=== PATIENT | female | born 1970 | race Caucasian/White ===

== ENCOUNTER 2017-03-14 22:15 | Emergency (ER) | payer OTHER ==
[2017-03-14 22:16] VITALS: BMI 38.2
[2017-03-14 22:37] VITALS: RESP 18; TEMP 98.8; O2SAT 99
--- NOTE | 2017-03-14 22:57 | ED PDOC ---
Arrival/HPI - General Historian: Patient - General Chief Complaint: Lower Extremity Problem/Injury Time Seen by Provider: 03/14/17 22:53 - History of Present Illness Narrative History of Present Illness (Text): 03/14/17 22:53 46 y/o female, pmh including gallstone, nkda, c/o rt. posterior knee pain started today. aching pain, associated with swelling, no fever or chills, no headache or night sweat, no dizziness, no fall or trauma, admits rt. calf pain, no other medical or psychological complaints. 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) - Genitourinary/Gynecological Hx Genitourinary Disorders: No Other/Comment: C SECTION X 3 - Psychiatric Hx Emotional Abuse: No Hx Physical Abuse: No Hx Substance Use: No - Surgical History Hx Section: Yes (x 3) - Anesthesia Hx Anesthesia Reactions: No Hx Malignant Hyperthermia: No - Suicidal Assessment Feels Threatened In Home Enviroment: No Family/Social History - Physician Review Nursing Documentation Reviewed: Yes Family/Social History: Unknown Family HX Smoking Status: Never Smoked Hx Alcohol Use: No Hx Substance Use: No Allergies/Home Meds Allergies/Adverse Reactions: Allergies No Known Allergies Allergy (Verified 01/01/16 19:43) Review of Systems - Review of Systems Constitutional: absent: Fatigue, Fevers Eyes: absent: Vision Changes ENT: absent: Hearing Changes Respiratory: absent: SOB, Cough Cardiovascular: absent: Chest Pain Gastrointestinal: absent: Abdominal Pain, Nausea, Vomiting Musculoskeletal: Arthralgias, Myalgias. absent: Back Pain, Neck Pain, Joint Swelling Skin: absent: Rash, Pruritis Neurological: absent: Headache, Dizziness Physical Exam Vital Signs Reviewed: Yes Temperature: Afebrile Blood Pressure: Hypertensive Pulse: Regular Respiratory Rate: Normal Appearance: Positive for: Well-Appearing, Non-Toxic, Comfortable Pain Distress: Moderate Mental Status: Positive for: Alert and Oriented X 3 - Systems Exam Head: Present: Atraumatic, Normocephalic Pupils: Present: PERRL Extroacular Muscles: Present: EOMI Conjunctiva: Present: Normal Mouth: Present: Moist Mucous Membranes Neck: Present: Normal Range of Motion Respiratory/Chest: Present: Clear to Auscultation, Good Air Exchange. No: Respiratory Distress, Accessory Muscle Use Cardiovascular: Present: Regular Rate and Rhythm, Normal S1, S2. No: Murmurs Abdomen: Present: Normal Bowel Sounds. No: Tenderness, Distention, Peritoneal Signs Back: Present: Normal Inspection Upper Extremity: Present: Normal Inspection. No: Cyanosis, Edema Lower Extremity: Present: Normal Inspection, Other (Rt. knee: +ttp on the rt. calf noted, no cellulitis or streaking, no joint laxity, negative salima and oneal signs, FROM without limitation, sensation intact, motor 5/5, +DPPT pulses, capillary refill< 2 seconds, neurovascular intact. ). No: Edema Neurological: Present: GCS=15, Speech Normal, Motor Func Grossly Intact, Gait Normal, Memory Normal Skin: Present: Warm, Dry, Normal Color. No: Rashes Psychiatric: Present: Alert, Oriented x 3, Normal Insight, Normal Concentration Medical Decision Making - RAD Interpretation Consultant In Ergonomics And Safety: Radiologist ED Course and Treatment: 03/14/17 23:00 -toradol -RLE venuous doppler -observe and reassess 03/15/17 00:16 -RLE venuous doppler: as per preliminary report, no acute DVT -Pain improved, will discharge home. -Discharge home with cane, naproxen, ice compression, follow up with your own pmd within2 days, return to the ER for any new or worsening signs or symptoms. ([place]) - RAD Interpretation Radiology Orders: 03/14/17 22:55 DUPLEX LOWER EXTRM VEIN RIGHT [US] Stat RLE Venuous Doppler: as per preliminary report, no acute DVT ([place]) - Medication Orders Current Medication Orders: Discontinued Medications Ketorolac Tromethamine (Toradol) 60 mg IM STAT STA Stop: 03/14/17 22:56 Last Admin: 03/14/17 23:28 Dose: 60 mg - PA / [employer] / Resident Statement MD/DO has reviewed & agrees with the documentation as recorded. Disposition/Present on Arrival - Present on Arrival Any Indicators Present on Arrival: No History of DVT/PE: No History of Uncontrolled Diabetes: No Urinary Catheter: No History of Decub. Ulcer: No History Surgical Site Infection Following: None - Disposition Have Diagnosis and Disposition been Completed?: Yes Disposition Time: 00:17 Patient Plan: Discharge - Disposition Diagnosis: Calf pain Disposition: HOME/ ROUTINE Condition: GOOD Additional Instructions: -Discharge home with cane, naproxen, ice compression, follow up with your own pmd within2 days, return to the ER for any new or worsening signs or symptoms. Prescriptions: Naproxen 500 mg PO BID PRN #[id number] tab PRN Reason: Other Referrals: Inga Bell APN-C [Primary Care Provider] - Follow up with primary Gregory Baugh MD [Staff Provider] - Follow up with primary Forms: [employer] (Togolese), WORK NOTE
[2017-03-15 00:49] VITALS: BP 145/81; PULSE 70
--- NOTE | 2017-03-15 15:38 | US ---
PROCEDURE: Right lower extremity venous US HISTORY: Leg pain and swelling. Evaluate for DVT. PHYSICIAN(S): Lance Bell M.D. TECHNIQUE: Duplex sonography and color-flow Doppler with graded compression were used to evaluate the deep venous system of the right lower extremity. FINDINGS: The visualized deep venous system of the right lower extremity is sonographically normal and compressible. Normal waveforms and augmentation are seen. There is no sonographic evidence for deep venous thrombosis in the visualized segments of the right lower extremity. IMPRESSION: 1. No sonographic evidence for deep venous thrombosis in the visualized segments of the right lower extremity.
== END 2017-03-15 00:49 | disposition home or self-care (01) ==
LOC: ED 22:15
DX: M79.661 Pain in right lower leg (principal)
CPT/HCPCS: 93971; 96372; 99284; J1885